=== PATIENT | female | born 1945 | race Caucasian/White ===

== ENCOUNTER → 2020-08-10 09:56 | Outpatient (BNVA) | payer MEDICARE, SELFPAY | PROVIDERS: PCP Internal Medicine; Referring Provider Internal Medicine; Visit Provider Internal Medicine | DX: G47.33 Obstructive sleep apnea (adult) (pediatric) (principal); G25.81 Restless legs syndrome; R91.1 Solitary pulmonary nodule; Z99.89 Dependence on other enabling machines and devices | CPT/HCPCS: 99213 ==

== ENCOUNTER → 2020-08-22 13:24 | Outpatient (BNVA) | payer MEDICARE, SELFPAY | PROVIDERS: PCP Internal Medicine; Referring Provider Internal Medicine; Visit Provider Internal Medicine | DX: I25.10 Atherosclerotic heart disease of native coronary artery without angina pectoris (principal); I48.0 Paroxysmal atrial fibrillation; R55 Syncope and collapse; Z79.01 Long term (current) use of anticoagulants; Z79.899 Other long term (current) drug therapy | CPT/HCPCS: 93005; 99212 ==

== ENCOUNTER 2020-11-18 12:33 | Outpatient (REF) | payer MEDICARE, SELFPAY ==
--- NOTE | 2020-11-18 12:36 | MM_ITS ---
EXAMINATION: MM SCREENING DIGITAL BREAST TOMOSYNTHESIS, BILATERAL CLINICAL INFORMATION: Screening. Asymptomatic. The lifetime risk of breast cancer based on the Tyrer-Cuzick Model is 2.0%. COMPARISON: Mammography: May 05, 2019 and studies dating back to July 30, 2016 TECHNIQUE: Digital breast tomosynthesis is performed in both the craniocaudal and mediolateral oblique views along with computer-aided detection (CAD). Synthesized 2D images are generated from the tomosynthesis. FINDINGS: There are scattered areas of fibroglandular density (ACR BI-RADS breast composition Category b). There are no significant masses, abnormal calcifications, or other abnormalities. MM/MM tomosynthesis screening BI IMPRESSION: There are no significant changes from prior study. ASSESSMENT: BI-RADS 1: Negative RECOMMENDATION: Routine annual mammography screening. This patient's information was entered into a reminder system with a target due date for their next mammogram.
== END 2020-11-18 12:34 | disposition home or self-care (01) ==
LOC: HO.MAMMO 12:33
PROVIDERS: Visit Provider Internal Medicine
DX: Z12.31 Encounter for screening mammogram for malignant neoplasm of breast (principal)
CPT/HCPCS: 77063; 77067

== ENCOUNTER 2020-12-07 10:02 | Emergency (ER) | payer MEDICARE, SELFPAY ==
--- NOTE | ~2020-12-07 | XR_ITS ---
EXAMINATION: XR FOREARM, LEFT and left hand and wrist. CLINICAL INFORMATION: Fall on ice COMPARISON: July 18, 2017 TECHNIQUE: AP and lateral views of the left forearm were obtained. 3 views of the left hand and wrist. FINDINGS: AP and lateral views of the left forearm demonstrate comminuted fracture distal left radius which will be described in examination of the hand and wrist. No ulnar fracture is appreciated. No elbow dislocation is seen. No elbow effusion is noted. There is soft tissue swelling about the proximal and mid dorsal ulnar. Views of the left hand and wrist demonstrate comminuted fracture of the distal left radius without significant displacement of fracture fragments and with dorsal angulation of the radiocarpal joint. Soft tissue swelling is noted. There is significant joint space narrowing with marginal sclerosis and spurring involving the first carpal metacarpal joint as well as the triscaphe joint. There is mild spurring involving the proximal and distal interphalangeal joints. XR/XR forearm LT 2V IMPRESSION: Fracture of the distal left radius with dorsal angulation of the distal fracture fragment. Osteoarthritis of the left hand involving the proximal and distal phalangeal joints. No left elbow effusion.
--- NOTE | ~2020-12-07 | CT_ITS ---
EXAMINATION: CT HEAD WITHOUT CONTRAST CLINICAL INFORMATION: Fall, trauma, on Eliquis. COMPARISON: CT head noncontrast 12/15/2019 TECHNIQUE: Contiguous axial imaging was performed from the skull base to vertex without intravenous administration of contrast. Additional 2-D coronal and sagittal reformatted images are generated on the CT workstation and uploaded to PACS. This CT examination was performed using dose optimization techniques as appropriate, variously including the following: *Automated exposure control *Adjustment of mA and/or kV according to patient size (this includes techniques or standardized protocols for targeted exams where dose is matched to indication/reason for exam; i.e. extremities or head) *Use of iterative reconstruction technique DLP: 660 mGy-cm FINDINGS: There is no intracranial hemorrhage, hematoma, or extra-axial fluid collection. The ventricles are normal in size. There is no hydrocephalus, edema, or mass effect. The conner-white matter differentiation appears symmetric. There is no visible acute territorial infarct or mass lesion. The calvarium appears intact. There is no pneumocephalus or orbital emphysema. The visualized sinuses and middle ears and mastoid air cells show no significant mucosal thickening. There are no air-fluid levels. CT/CT head/brain wo con IMPRESSION: No acute intracranial abnormality.
--- NOTE | ~2020-12-07 | XR_ITS ---
EXAMINATION: XR FOREARM, LEFT and left hand and wrist. CLINICAL INFORMATION: Fall on ice COMPARISON: July 18, 2017 TECHNIQUE: AP and lateral views of the left forearm were obtained. 3 views of the left hand and wrist. FINDINGS: AP and lateral views of the left forearm demonstrate comminuted fracture distal left radius which will be described in examination of the hand and wrist. No ulnar fracture is appreciated. No elbow dislocation is seen. No elbow effusion is noted. There is soft tissue swelling about the proximal and mid dorsal ulnar. Views of the left hand and wrist demonstrate comminuted fracture of the distal left radius without significant displacement of fracture fragments and with dorsal angulation of the radiocarpal joint. Soft tissue swelling is noted. There is significant joint space narrowing with marginal sclerosis and spurring involving the first carpal metacarpal joint as well as the triscaphe joint. There is mild spurring involving the proximal and distal interphalangeal joints. XR/XR hand wrist LT IMPRESSION: Fracture of the distal left radius with dorsal angulation of the distal fracture fragment. Osteoarthritis of the left hand involving the proximal and distal phalangeal joints. No left elbow effusion.
[2020-12-07 10:48] VITALS: BP 174/72; PULSE 70; RESP 16; TEMP 36.5; O2SAT 98; BMI 29.7
--- NOTE | 2020-12-07 11:21 | ED_ITS ---
HPI - Extremity Problem General Chief complaint: Extremity Injury, Upper Stated complaint: fell hurt lt arm Time Seen by Provider: 12/07/20 10:45 Source: patient Mode of arrival: ambulatory History of Present Illness HPI Narrative: 75-year-old female with a past medical history restless leg syndrome, proximal AFib on Eliquis, CHIQUITA on CPAP, CAD s/p cardiac catheterization, hyperlipidemia, presenting to the ED complaining of shoulder/wrist/hand pain s/p mechanical slip and fall on the ice 1 hour [employer]. Reports she believes she hit her head, but denies headache now, or LOC. Denies symptoms prior to fall. Denies numbness, tingling,, nausea/vomiting MD Complaint: extremity pain, extremity swelling and joint paint Related Data Home Medications Medication Instructions Recorded Confirmed apixaban 5 mg tablet 5 mg PO BID 07/20/20 08/22/20 ascorbic acid (vitamin C) 1,000 mg 2 g PO DAILY tab 08/10/20 08/22/20 tablet mecobalamin (vitamin B12) 1,000 1,000 mcg PO DAILY 08/10/20 08/22/20 mcg chewable tablet pantoprazole 20 mg tablet,delayed 20 mg PO DAILY 08/10/20 08/22/20 release rosuvastatin 40 mg tablet See Rx Instructions PO DAILY 08/10/20 08/22/20 metoprolol succinate 25 mg 25 mg PO DAILY tab 08/22/20 08/22/20 tablet,extended release 24 hr ropinirole 5 mg tablet 5 mg PO BEDTIME 09/13/20 Previous Rx's Medication Instructions Recorded ropinirole 5 mg tablet 5 mg PO BEDTIME #90 tab 09/13/20 oxybutynin chloride 10 mg 10 mg PO DAILY #90 tab 09/19/20 tablet,extended release 24 hr diltiazem HCl 120 mg 120 mg PO DAILY #90 cap 09/25/20 capsule,extended release 24 hr oxycodone-acetaminophen [Percocet] 1 tab PO Q8H PRN 3 Days #9 tab 12/07/20 Allergies Allergy/AdvReac Type Severity Reaction Status Date / Time metoclopramide [From REGLAN] Allergy Intermediate SWELLING Verified 09/25/20 08:58 Review of Systems Review of Systems: Constitutional: No Weight loss, No Fever Cardiovascular: No Chest Pain, No SOB Respiratory: No Cough, No Dyspnea Gastrointestinal: No Nausea, No Vomiting Musculoskeletal: + joint pain, No Myalgias, + Joint Swelling Skin: No Skin Lesions, No rash Neuro: No Weakness, No Numbness, No Paresthesias, No Loss of Consciousness, No Dizziness, No Headache Yes all other systems are reviewed and are negative [facility] Past Medical History Attestation statement: The following information was validated with the patient. Medical History (Updated 12/07/20 @ 13:22 by JONNATHAN Bryant) Age related osteoporosis Atherosclerotic cardiovascular disease Atherosclerotic heart disease of [place] coronary artery with unstable angina pectoris Atrial fibrillation Borderline hypercholesterolemia Congenital multiple renal cysts Gastro-esophageal reflux disease without esophagitis Hearing loss Insomnia due to medical condition CHIQUITA on CPAP PAF (paroxysmal atrial fibrillation) Pulmonary nodule less than 6 cm determined by computed tomography of lung Restless legs Slow transit constipation Thrombocytopenia, unspecified Trigeminal neuralgia Unilateral primary osteoarthritis, right hip Surgical History H/O: hysterectomy Hx of cardiac cath Hx of cholecystectomy Hx of varicose vein stripping Family History Family History Father Aneurysm Mother No problems noted. Brother Lung cancer Stroke Sister Heart problem Social History Social History Smoking Status: Never smoker Advance Directives: No Advance Directives Information Provided: Yes Physical Exam Vital Signs: Vital Signs: Last Vital Signs Temp 97.7 F 12/07/20 10:48 Pulse 70 12/07/20 10:48 Resp 16 12/07/20 10:48 BP 174/72 H 12/07/20 10:48 Pulse Ox 98 12/07/20 10:48 Body Mass Index 29.7 Const: General: cooperative and healthy appearing Orientation/consciousness: patient oriented x3 Limitations: no limitations HENMT: Head: Yes normal to inspection, Yes No palpable skull fracture present and Yes atraumatic Ears: hearing grossly normal bilaterally General nose exam: Normal external nose present Face and sinus: Yes normal facial exam Eyes: General: appearance normal, both eyes and all related structures EOM: EOMs intact bilaterally Neck: Other: No midline cervical spinous tenderness or step-offs Neck: Yes normal visual inspection Resp: Effort & Inspection: normal respiratory effort Cardio: Rate: regular rate Peripheral pulses: radial pulses present Skin: Rashes: no rashes Wounds: no wounds Neuro: General: patient oriented x3, tone normal and moves all extremities Extrem: Other: Left shoulder/humerus/elbow without deformity. Nontender. Left forearm with distal swelling and tenderness to palpation Left wrist with notable deformity/swelling and ecchymosis. Tender to palpation. Neurovascularly intact. Hand ROM limited due to pain. Thumb to finger opposition intact General: Yes normal to inspection Course Course Course Narrative: XR hand wrist LT IMPRESSION: Fracture of the distal left radius with dorsal angulation of the distal fracture fragment. Osteoarthritis of the left hand involving the proximal and distal phalangeal joints. No left elbow effusion >partially reduced fracture and placed in sugar-tong splint with sling to follow-up with orthopedics CT head/brain wo con IMPRESSION: No acute intracranial abnormality Discharge Plan Discharge Clinical Impression: Distal radius fracture, left Qualifiers: Encounter type: initial encounter Fracture type: closed Fracture morphology: unspecified fracture morphology Qualified Code(s): S52.502A - Unspecified fracture of the lower end of left radius, initial encounter for closed fracture Patient Disposition: Home, Self-Care Instructions: Wrist Fracture in Adults (ED) Additional Instructions: You have a broken wrist. Keep splint on, dry, and clean Ice and elevate your wrist. Follow-up with accounts receivable specialist in 1 week. Percocet is an opiate pain medication, take only when pain is severe for the next 3 days In addition take Tylenol, however be aware Percocet as Tylenol mixed in, do not exceed 4 g of Tylenol in 1 day If her fingers become swollen, discolored, numb, or pain is unbearable remove Justin wrap and return to the ED immediately Prescriptions: New oxycodone-acetaminophen [Percocet] 5-325 mg tablet 1 tab PO Q8H PRN (Reason: pain) 3 Days Qty: 9 RF: 0 No Action ropinirole 5 mg tablet 5 mg PO BEDTIME RF: 0 ropinirole 5 mg tablet 5 mg PO BEDTIME Qty: 90 RF: 0 oxybutynin chloride 10 mg tablet extended release 24hr 10 mg PO DAILY Qty: 90 RF: 0 diltiazem HCl [Cartia XT] 120 mg capsule,extended release 24hr 120 mg PO DAILY Qty: 90 RF: 1 pantoprazole 20 mg tablet,delayed release (DR/EC) 20 mg PO DAILY RF: 0 mecobalamin (vitamin B12) 1,000 mcg tablet,chewable 1,000 mcg PO DAILY RF: 0 ascorbic acid (vitamin C) 1,000 mg tablet 2 g PO DAILY RF: 0 rosuvastatin [Crestor] 40 mg tablet See Rx Instructions PO DAILY RF: 0 metoprolol succinate 25 mg tablet extended release 24 hr 25 mg PO DAILY RF: 0 Eliquis 5 mg tablet 5 mg PO BID RF: 0 Referrals: InstrMartina lomas MD [Physician] - 1 week
[2020-12-07] MEDS: Acetaminophen 325 MG TABLET 650 MG PO (11:48)
[2020-12-07] MEDS: oxyCODONE HCl Immed Release 5 MG TABLET PO (11:49)
[2020-12-07] MEDS: Lidocaine HCl 1 % MPF 5 ML VIAL SUBCUT ×2 (13:22)
== END 2020-12-07 13:45 | disposition home or self-care (01) ==
PROVIDERS: Emergency Provider Emergency Medicine
DX: S52.502A Unspecified fracture of the lower end of left radius, initial encounter for closed fracture (principal); W00.0XXA Fall on same level due to ice and snow, initial encounter; M19.042 Primary osteoarthritis, left hand; I48.91 Unspecified atrial fibrillation; G89.11 Acute pain due to trauma; M25.512 Pain in left shoulder; Y93.89 Activity, other specified; Y92.014 Private driveway to single-family (private) house as the place of occurrence of the external cause; Y99.9 Unspecified external cause status; Z79.01 Long term (current) use of anticoagulants
CPT/HCPCS: 29125; 70450; 73090; 73110; 73130; 99283; 99284

== ENCOUNTER → 2021-01-16 09:27 | Outpatient (BNVA) | payer MEDICARE, SELFPAY | PROVIDERS: Visit Provider Internal Medicine | DX: G47.33 Obstructive sleep apnea (adult) (pediatric) (principal); G25.81 Restless legs syndrome; Z99.89 Dependence on other enabling machines and devices | CPT/HCPCS: 99212 ==

== ENCOUNTER → 2021-02-26 09:46 | Outpatient (BNVA) | payer MEDICARE, SELFPAY | PROVIDERS: Visit Provider Internal Medicine | DX: I48.0 Paroxysmal atrial fibrillation (principal); I25.10 Atherosclerotic heart disease of native coronary artery without angina pectoris; R55 Syncope and collapse; G47.33 Obstructive sleep apnea (adult) (pediatric); I10 Essential (primary) hypertension; Z99.89 Dependence on other enabling machines and devices | CPT/HCPCS: 99212 ==

== ENCOUNTER → 2021-05-02 08:55 | Outpatient (BNVA) | payer MEDICARE, SELFPAY | PROVIDERS: Visit Provider Internal Medicine | DX: Z01.810 Encounter for preprocedural cardiovascular examination (principal); I48.0 Paroxysmal atrial fibrillation; I25.10 Atherosclerotic heart disease of native coronary artery without angina pectoris; R55 Syncope and collapse; I10 Essential (primary) hypertension; G47.33 Obstructive sleep apnea (adult) (pediatric); Z99.89 Dependence on other enabling machines and devices; Z79.899 Other long term (current) drug therapy | CPT/HCPCS: 93005; 99212 ==

== ENCOUNTER → 2021-05-10 15:18 | Outpatient (BNVA) | payer MEDICARE, SELFPAY | PROVIDERS: PCP Internal Medicine; Visit Provider Internal Medicine | DX: G47.33 Obstructive sleep apnea (adult) (pediatric) (principal); G25.81 Restless legs syndrome; R91.1 Solitary pulmonary nodule; Z99.89 Dependence on other enabling machines and devices | CPT/HCPCS: 99212 ==

== ENCOUNTER 2021-06-20 07:45 | Emergency (ER) | payer MEDICARE, SELFPAY ==
--- NOTE | 2021-06-20 07:53 | ED_ITS ---
HPI - Animal Bite General Chief Complaint: General Medical Stated Complaint: bee sting Time Seen by Provider: 06/20/21 07:53 Source: patient Mode of arrival: ambulatory Limitations: no limitations History of Present Illness MD complaint: other (bee sting) Onset (ago): day(s) (yesterday) Animal: other (bee) Description of animal: unknown animal Mechanism: other (sting) Location: other (buttocks, left leg) Pain description: burning Context: unprovoked Associated symptoms: none Treatments prior to arrival: other (tried cortisone and hydrogen peroxide) Related Data Home Medications Medication Instructions Recorded Confirmed ascorbic acid (vitamin C) 1,000 mg 2 g PO DAILY tab 08/10/20 05/02/21 tablet mecobalamin (vitamin B12) 1,000 1,000 mcg PO DAILY 08/10/20 05/02/21 mcg chewable tablet ropinirole 5 mg tablet 5 mg PO BEDTIME 09/13/20 05/02/21 Previous Rx's Medication Instructions Recorded oxybutynin chloride 10 mg 10 mg PO DAILY #90 tab 12/27/20 tablet,extended release 24 hr apixaban 5 mg tablet (Eliquis) 5 mg PO BID 90 Days #180 tab 03/12/21 diltiazem HCl 120 mg 120 mg PO DAILY #90 cap 04/11/21 capsule,extended release 24 hr (Cartia XT) prednisone 20 mg tablet 40 mg PO DAILY 4 Days #8 tab 06/20/21 Allergies Allergy/AdvReac Type Severity Reaction Status Date / Time metoclopramide [From REGLAN] AdvReac Intermediate SWELLING Verified 05/10/21 16:01 Review of Systems Review of Systems: Constitutional : No Fever, No Chills ENT/Mouth : No sore throat, No Rhinorrhea Eyes: No Eye Pain, No Swelling, No Redness Cardiovascular : No Chest Pain, No SOB Respiratory : No Cough, No Sputum Gastrointestinal : No Nausea, No Vomiting, No Diarrhea, No abdominal Pain Genitourinary : No Dysuria, No Hematuria Musculoskeletal : No joint pain, No Myalgias, No Joint Swelling Skin : pos Skin Lesions, positive skin rash Neuro : No Weakness, No Numbness, No Headache All other systems reviewed and are negative PMFSH Past Medical History Attestation statement: The following information was validated with the patient. Medical History Age related osteoporosis Atherosclerotic cardiovascular disease Atherosclerotic heart disease of [place] coronary artery with unstable angina pectoris Atrial fibrillation Borderline hypercholesterolemia Congenital multiple renal cysts Essential hypertension Gastro-esophageal reflux disease without esophagitis Hearing loss Insomnia due to medical condition CHIQUITA on CPAP PAF (paroxysmal atrial fibrillation) Pulmonary nodule less than 6 cm determined by computed tomography of lung Restless legs Slow transit constipation Thrombocytopenia, unspecified Trigeminal neuralgia Unilateral primary osteoarthritis, right hip Surgical History H/O: hysterectomy Hx of cardiac cath Hx of cholecystectomy Hx of varicose vein stripping Family History Family History Father Aneurysm Mother No problems noted. Brother Lung cancer Stroke Sister Heart problem Social History Social History Patient Tobacco Use Status: Never used Tobacco Use of substances other than those prescribed or required for medical reasons: No Advance Directives: Yes Advance Directives Information Provided: Yes Advance Directives on File: No Physical Exam Vital Signs: Appearance: Alert. Oriented X3. No acute distress. Eyes: Pupils equal, round and reactive to light. ENT: Pharynx normal. Neck: Normal inspection. Neck supple. CVS: Normal heart rate and rhythm. Pulses normal. Respiratory: No respiratory distress. Breath sounds normal. Abdomen: Soft and non-tender. Skin: Skin warm and dry. Normal skin color. Bites to left buttock and left leg localized swelling and redness no fluctuance, no signs of extending erythema Extremities: No lower extremity edema. No calf ttp Neuro: Oriented X 3. No motor deficit. No sensory deficit. MDM - Animal Bite MDM Narrative Medical decision making narrative: 76 yo female with afib, here with bee stings with localized allergic reaction on legs and buttocks - no respiratory issues, will start on low dose steroids and topical benadryl, no signs of cellulitis Discharge Plan Discharge Clinical Impression: Accidental bee sting Patient Disposition: Home, Self-Care Instructions: Insect Bite or Sting (ED) Additional Instructions: return to ED for any worsening symptoms or concerns obtain topical benadryl and apply three times a day Prescriptions: New prednisone 20 mg tablet 40 mg PO DAILY 4 Days Qty: 8 RF: 0 No Action ropinirole 5 mg tablet 5 mg PO BEDTIME RF: 0 oxybutynin chloride 10 mg tablet extended release 24hr 10 mg PO DAILY Qty: 90 RF: 1 apixaban [Eliquis] 5 mg tablet 5 mg PO BID 90 Days Qty: 180 RF: 1 diltiazem HCl [Cartia XT] 120 mg capsule,extended release 24hr 120 mg PO DAILY Qty: 90 RF: 0 mecobalamin (vitamin B12) 1,000 mcg tablet,chewable 1,000 mcg PO DAILY RF: 0 ascorbic acid (vitamin C) 1,000 mg tablet 2 g PO DAILY RF: 0
[2021-06-20 07:59] VITALS: BP 163/73; PULSE 74; RESP 18; TEMP 36.7; O2SAT 100; BMI 29.2
[2021-06-20] MEDS: predniSONE 20 MG TABLET 40 MG PO (08:08)
== END 2021-06-20 08:18 | disposition home or self-care (01) ==
PROVIDERS: Emergency Provider Emergency Medicine
DX: T63.441A Toxic effect of venom of bees, accidental (unintentional), initial encounter (principal); R21 Rash and other nonspecific skin eruption; R22.32 Localized swelling, mass and lump, left upper limb; Y92.017 Garden or yard in single-family (private) house as the place of occurrence of the external cause; I10 Essential (primary) hypertension; I48.91 Unspecified atrial fibrillation; Z79.899 Other long term (current) drug therapy
CPT/HCPCS: 99283

== ENCOUNTER → 2021-08-30 14:26 | Outpatient (BNVA) | payer MEDICARE, SELFPAY | PROVIDERS: Visit Provider Internal Medicine | DX: I48.0 Paroxysmal atrial fibrillation (principal); I25.10 Atherosclerotic heart disease of native coronary artery without angina pectoris; I10 Essential (primary) hypertension; R55 Syncope and collapse; G47.33 Obstructive sleep apnea (adult) (pediatric); Z99.89 Dependence on other enabling machines and devices | CPT/HCPCS: 93005; 99212 ==

== ENCOUNTER → 2021-09-03 14:47 | Outpatient (REF) | payer MEDICARE, SELFPAY ==
--- NOTE | 2021-09-03 14:56 | HM_ITS ---
Conclusion: 1. Patient was monitored for total period of 2 days and 23 hours 2. Baseline rhythm is normal sinus rhythm with average heart of 64 beats per minute 3. No significant pauses or bradycardia noted 4. One 4 beat run of nonsustained VT at 186 beats per minute noted 5. Twelve short runs of cerebral episode with longest lasting 10 beats 6. Total of 721 PACs accounting for 0.26% a cardiac for occasional PACs 7. Patient reported to events correlated with sinus rhythm MTDD
== END ==
LOC: HO.CARD 14:47
PROVIDERS: Visit Provider Internal Medicine
DX: I48.0 Paroxysmal atrial fibrillation (principal); R00.2 Palpitations
CPT/HCPCS: 93242

== ENCOUNTER → 2021-11-06 13:17 | Outpatient (BNVA) | payer MEDICARE, SELFPAY | PROVIDERS: Visit Provider Internal Medicine | DX: I48.0 Paroxysmal atrial fibrillation (principal); I25.10 Atherosclerotic heart disease of native coronary artery without angina pectoris; I10 Essential (primary) hypertension; G47.33 Obstructive sleep apnea (adult) (pediatric); R55 Syncope and collapse; Z99.89 Dependence on other enabling machines and devices | CPT/HCPCS: 99212 ==

== ENCOUNTER → 2021-11-12 09:58 | Outpatient (BNVA) | payer MEDICARE, SELFPAY | PROVIDERS: Visit Provider Internal Medicine | DX: G47.33 Obstructive sleep apnea (adult) (pediatric) (principal); R91.1 Solitary pulmonary nodule; G25.81 Restless legs syndrome; Z99.89 Dependence on other enabling machines and devices | CPT/HCPCS: 99212 ==

== ENCOUNTER 2022-02-01 08:04 | Emergency (ER) | payer MEDICARE, SELFPAY ==
--- NOTE | ~2022-02-01 | US_ITS ---
EXAMINATION: US VENOUS ULTRASOUND WITH DOPPLER LOWER EXTREMITY, LEFT CLINICAL INFORMATION: Left leg pain COMPARISON: None TECHNIQUE: Ultrasound of the deep veins is performed from the hip to the calf with compression sonography and color and pulse Doppler assessment. Spectral analysis with color-flow imaging is performed. FINDINGS: There is normal venous compression and respiratory variation and augmented flow. The visualized common femoral vein, superficial femoral vein, profunda femoral vein, popliteal vein, and the trifurcation region shows no evidence of deep venous thrombosis. There is no significant popliteal fossa cyst. If the patient's symptoms persist, followup ultrasound in 5 days 7 days might be of value to exclude proximal propagation from a non-visualized calf vein. US/US venous duplex LE LT IMPRESSION: No DVT demonstrated in the left lower extremity.
--- NOTE | ~2022-02-01 | XR_ITS ---
EXAMINATION: XR KNEE, LEFT CLINICAL INFORMATION: Pain COMPARISON: None TECHNIQUE: Four views of the left knee. FINDINGS: There is mild loss of medial and patellofemoral compartment joint space without any visible acute fracture, dislocation, loose bodies or bony erosive changes. There is mild anterior superior patellar enthesophyte. No suprapatellar joint effusion seen. XR/XR knee LT 4V IMPRESSION: Mild degenerative changes medial and patellofemoral compartment with anterior superior patellar enthesophyte.
[2022-02-01 08:10] VITALS: BP 168/66; PULSE 71; RESP 16; TEMP 36.6; O2SAT 98; BMI 30.9
--- NOTE | 2022-02-01 08:42 | ED.EXTPRO ---
HPI - Extremity Problem General Chief complaint: Extremity Problem Stated complaint: L leg pain Time Seen by Provider: 02/01/22 08:22 Source: patient Mode of arrival: ambulatory Limitations: no limitations History of Present Illness HPI Narrative: 76-year-old female with a history of hypertension, AFib on Eliquis, obstructive sleep apnea here with 1 week of left leg pain and swelling. Patient tells me that prior to her pain she had spent a day going up and down a ladder doing some spring cleaning. Patient tells me the next day she woke up with pain in her knee which radiates down into her calf and she feels like there is swelling associated with this. No redness, warmth, fevers, chills, shortness of breath or chest pain. She has been compliant with her Eliquis this not missed any days. Patient denies any recent antibiotic use. Related Data Home Medications Medication Instructions Recorded Confirmed ascorbic acid (vitamin C) 1,000 mg 2 g PO DAILY tab 08/10/20 11/06/21 tablet ropinirole 5 mg tablet 5 mg PO BEDTIME 09/13/20 11/06/21 Previous Rx's Medication Instructions Recorded oxybutynin chloride 10 mg 10 mg PO DAILY #90 tab 12/27/20 tablet,extended release 24 hr diltiazem HCl 240 mg 240 mg PO QAM #90 cap 08/30/21 capsule,extended release 24 hr (Cartia XT) apixaban 5 mg tablet (Eliquis) 5 mg PO BID 90 Days #180 tab 12/12/21 Allergies Allergy/AdvReac Type Severity Reaction Status Date / Time metoclopramide [From REGLAN] AdvReac Intermediate SWELLING Verified 11/12/21 10:07 Review of Systems Review of Systems: Yes all other systems are reviewed and are negative Constitutional: Constitutional: Reports no additional constitutional complaints, Denies body ache(s), Denies chills, Denies fever(s), Denies headache(s) and Denies weakness Eyes: Eyes: Reports no additional eye complaints and Denies change in vision ENT: Reports system reviewed and no additional complaints, except as documented, Denies dizziness, Denies headache(s), Denies nasal congestion, Denies nasal discharge and Denies neck pain Cardiovascular: Cardiovascular: Reports no additional cardiovascular complaints, Denies chest pain, Reports leg edema and Denies dyspnea Respiratory: Respiratory: Reports no additional respiratory complaints, Denies cough and Denies dyspnea Gastrointestinal: Gastrointestinal: Reports no additional gastrointestinal complaints, Denies abdominal pain, Denies diarrhea, Denies nausea and Denies vomiting Genitourinary: Genitourinary: Reports no additional female genitourinary complaints and Denies urinary incontinence Musculoskeletal: Musculoskeletal: Reports no additional musculoskeletal complaints, Denies back pain, Reports arthralgias, Denies joint swelling, Denies limited range of motion, Denies neck pain, Denies numbness and Denies tingling Integumentary/Breasts: Skin/Breast: Reports system reviewed and no additional complaints, except as docu and Denies rash Neurologic: Reports system reviewed and no additional complaints, except as documented, Denies Abnormal speech present, Denies dizziness, Denies headache(s), Denies numbness, Denies tingling and Denies weakness PMFSH Past Medical History Attestation statement: The following information was validated with the patient. Source: old records reviewed and nursing notes reviewed Medical History Age related osteoporosis Atherosclerotic cardiovascular disease Atherosclerotic heart disease of [place] coronary artery with unstable angina pectoris Atrial fibrillation Borderline hypercholesterolemia Congenital multiple renal cysts Essential hypertension Gastro-esophageal reflux disease without esophagitis Hearing loss Insomnia due to medical condition CHIQUITA on CPAP PAF (paroxysmal atrial fibrillation) Pulmonary nodule less than 6 cm determined by computed tomography of lung Restless legs Slow transit constipation Thrombocytopenia, unspecified Trigeminal neuralgia Unilateral primary osteoarthritis, right hip Surgical History H/O: hysterectomy Hx of cardiac cath Hx of cholecystectomy Hx of varicose vein stripping Family History Family History Father Aneurysm Mother No problems noted. Brother Lung cancer Stroke Sister Heart problem Social History Social History Patient Tobacco Use Status: Never used Tobacco Advance Directives: No Advance Directives Information Provided: No Physical Exam Vital Signs: Vital Signs: Last Vital Signs Temp 97.8 F 02/01/22 08:10 Pulse 71 02/01/22 08:10 Resp 16 02/01/22 08:10 BP 168/66 H 02/01/22 08:10 Pulse Ox 98 02/01/22 08:10 BMI result Body Mass Index 30.9 Const: General: cooperative, healthy appearing, comfortable and no acute distress Orientation/consciousness: patient oriented x3 Limitations: no limitations HEENT: Head: Yes normal to inspection Ears: hearing grossly normal bilaterally General nose exam: Normal external nose present Face and sinus: Yes normal facial exam Mouth: Normal oral and palatal mucosa present Throat: Yes posterior oropharynx normal Eyes: General: appearance normal, both eyes and all related structures Pupils: Equal, round and reactive pupils present Neck: Neck: Yes normal visual inspection Chest: Chest palpation & inspection: normal inspection of the chest Resp: Effort & Inspection: normal respiratory effort Auscultation: clear to auscultation bilaterally Cardio: Rate: regular rate Rhythm: regular rhythm Peripheral pulses: Peripheral pulses 2+ throughout GI: Inspection: Yes normal to inspection Palpation (GI): Soft to palpation and nontender Auscultation: normal bowel sounds Back/Spine/Pelvis: Thoracic/Lumbar Spine: thoracic and lumbar spine normal to inspection Skin: General skin exam: no rashes or lesions noted Neuro: General: patient oriented x3, no focal motor deficits and normal sensation to monofilament Cranial nerves: Yes Equal, round and reactive pupils present Cognition (Neuro): normal cognition Speech: No Abnormal speech present Gait exam (Neuro): Normal gait present Motor exam (neuro): 5/5 motor strength present throughout Extrem: Other: There is tenderness the left knee diffusely with full range of motion. There is tenderness the left calf with no appreciable swelling, warmth or redness. There is tenderness with flexion and extension of the foot. Negative Liao sign. General: Yes normal to inspection Course Course Course Narrative: 76-year-old female here with 1 week of left knee pain which radiates to the calf with reported swelling. Patient tells me this occurred after going up and down a ladder. Will check x-rays, venous ultrasound, provide pain control Reevaluation(s) Reevaluation #1: 1140- ultrasound shows no acute DVT. X-ray of left knee shows arthritic changes. Labs unremarkable. ?gastro Strain. low concern for Achilles tendon injury with negative Liao test, no risk factors such as recent antibiotics. recommend supportive care at home, Tylenol as needed for pain, follow-up with primary care for persistent pain MDM - Extremity (Nontraumatic) Medical Records Attestation: I reviewed the patient's medical records. Lab Data Attestation: I reviewed the patient's lab results. Result diagrams: 02/01/22 08:43 02/01/22 08:43 Labs: Lab Results 02/01/22 02/01/22 Range/Units 08:43 08:43 WBC 4.2 L (4.8-10.8) X10*3/uL RBC 4.67 (4.20-5.50) X10*6/uL Hgb 14.3 (12.0-16.0) g/dl Hct 43.4 (37.0-47.0) % MCV 92.9 (80.0-98.0) fL MCH 30.6 (27.0-33.0) pg MCHC 32.9 (31.0-35.0) g/dl RDW 13.9 (11.0-16.0) % Plt Count 157 L (160-400) X10*3/uL MPV 11.8 (9.4-12.3) fL Immature Gran % (Auto) 0.0 (0.0-0.4) % Neut % (Auto) 53.2 (45-73) % Lymph % (Auto) 32.3 (20-40) % [place] % (Auto) 9.6 (2-11) % Eos % (Auto) 3.9 (0-4) % Baso % (Auto) 1.0 (0-2) % Lymph # (Auto) 1.3 (1.2-4.9) X10*3/uL [place] # (Auto) 0.4 (0.1-1.2) X10*3/uL Eos # (Auto) 0.2 (0.0-0.4) X10*3/uL Baso # (Auto) 0.0 (0.0-0.2) X10*3/uL Abs Immat Gran (auto) 0.00 (0.00-0.03) X10*3/uL Absolute Neuts (auto) 2.2 (2.0-8.3) x10*3/uL Absolute Nucleated RBC 0.000 (0.0-0.012) X10*3/uL Nucleated RBC % (auto) 0.0 (0.0-0.2) /100WBC Sodium 139 (135-145) mmol/L Potassium 3.8 (3.3-5.1) mmol/L Chloride 106 (96-108) mmol/L Carbon Dioxide 24 (22-29) mmol/L Anion Gap 13 (12-20) BUN 18 H (9-16) mg/dL Creatinine 0.80 (0.5-1.4) mg/dL Estim Creat Clear Calc 59.8 Estimated GFR > 60 Random Glucose 123 H (60-115) mg/dL Calcium 9.2 (8.4-10.2) mg/dL Total Bilirubin 0.9 (0.0-1.0) mg/dL Direct Bilirubin 0.3 (0.0-0.5) mg/dL AST 20 (5-31) U/L ALT 17 (0-31) U/L Alkaline Phosphatase 105 (39-117) U/L Total Protein 7.3 (6.5-8.0) g/dL Albumin 4.1 (3.5-5.0) g/dL Imaging Data Venous US: Attestation: I personally reviewed and interpreted this imaging study as follows: Radiologist's impression: [place] [id number] Ultrasound Report Signed Patient: Juan Heard MR#: [id number] : 1945 Acct:[id number] Age/Sex: 76 / F ADM Date: 02/01/22 Loc: .ED Attending Dr: Ordering Physician: Priscila Joshi NP Date of Service: 02/01/22 Procedure(s): US venous duplex LE Accession Number(s): [id number] cc: Priscila Joshi NP~ EXAMINATION:? US VENOUS ULTRASOUND WITH DOPPLER LOWER EXTREMITY, LEFT CLINICAL INFORMATION:? Left leg pain COMPARISON:? None TECHNIQUE: Ultrasound of the deep veins is performed from the hip to the calf with compression sonography and color and pulse Doppler assessment. Spectral analysis with color-flow imaging is performed. FINDINGS: There is normal venous compression and respiratory variation and augmented flow. The visualized common femoral vein, superficial femoral vein, profunda femoral vein, popliteal vein, and the trifurcation region shows no evidence of deep venous thrombosis. ? There is no significant popliteal fossa cyst. If the patient's symptoms persist, followup ultrasound in 5 days 7 days might be of value to exclude proximal propagation from a non-visualized calf vein. US/US venous duplex LE LT IMPRESSION: No DVT demonstrated in the left lower extremity. knee x-ray: Attestation: I personally reviewed and interpreted this imaging study as follows: Radiologist's impression: FINDINGS: There is mild loss of medial and patellofemoral compartment joint space without any visible acute fracture, dislocation, loose bodies or bony erosive changes. There is mild anterior superior patellar enthesophyte. No suprapatellar joint effusion seen.? XR/XR knee LT 4V IMPRESSION: Mild degenerative changes medial and patellofemoral compartment with anterior superior patellar enthesophyte. ? Discharge Plan Discharge Clinical Impression: Gastrocnemius strain, left, Osteoarthritis of left knee Patient Disposition: Home, Self-Care Instructions: Muscle Strain (DC), Osteoarthritis (DC) Additional Instructions: Your ultrasound showed no signs of a blood clot. your x-ray shows arthritis in your knee. your lab work is normal. you likely have a strain of your calf muscle. apply ice. rest the leg. take Tylenol for pain. see your primary care doctor in 5 days for persistent pain Prescriptions: No Action ropinirole 5 mg tablet 5 mg PO BEDTIME 0RF Rx Instructions: administer 1-3 hours before bedtime oxybutynin chloride 10 mg tablet extended release 24hr 10 mg PO DAILY Qty: 90 1RF Eliquis 5 mg tablet 5 mg PO BID 90 Days Qty: 180 1RF ascorbic acid (vitamin C) 1,000 mg tablet 2 g PO DAILY 0RF diltiazem HCl [Cartia XT] 240 mg capsule,extended release 24hr 240 mg PO QAM Qty: 90 4RF Referrals: Physician,Unknown J [Primary Care Provider] - 5 days Interventions: ED Discharge Assessment Last Done: 02/01/22 11:26 Discharge Date/Time: 02/01/22 11:27
[2022-02-01] MEDS: Acetaminophen 325 MG TABLET 975 MG PO (08:47)
[2022-02-01 08:48] LABS: MANUAL DIFF FLAG NO
[2022-02-01 09:03] LABS: Eosinophils Absolute Auto 0.2 X10*3/uL (0.0-0.4); Eosinophils Percent Auto 3.9 % (0-4); Hematocrit 43.4 % (37.0-47.0); Hemoglobin 14.3 g/dl (12.0-16.0); Lymphocytes Absolute Auto 1.3 X10*3/uL (1.2-4.9); Lymphocytes Percent Auto 32.3 % (20-40); Mean Corpuscular HGB Conc 32.9 g/dl (31.0-35.0); Mean Corpuscular Hemoglobin 30.6 pg (27.0-33.0); Mean Corpuscular Volume 92.9 fL (80.0-98.0); Mean Platelet Volume 11.8 fL (9.4-12.3); Monocytes Absolute Auto 0.4 X10*3/uL (0.1-1.2); Monocytes Percent Auto 9.6 % (2-11); Neutrophils Absolute Auto 2.2 x10*3/uL (2.0-8.3); Neutrophils Percent Auto 53.2 % (45-73); Platelet Count 157 X10*3/uL (160-400); Red Blood Count 4.67 X10*6/uL (4.20-5.50); Red Cell Distribution Width 13.9 % (11.0-16.0); White Blood Count 4.2 X10*3/uL (4.8-10.8)
[2022-02-01 09:10] LABS: Alanine Aminotransferase 17 U/L (0-31); Albumin Level 4.1 g/dL (3.5-5.0); Alkaline Phosphatase 105 U/L (39-117); Anion Gap 13 (12-20); Aspartate Amino Transferase 20 U/L (5-31); Bilirubin Direct 0.3 mg/dL (0.0-0.5); Bilirubin Total 0.9 mg/dL (0.0-1.0); Blood Urea Nitrogen 18 mg/dL (9-16); Calcium 9.2 mg/dL (8.4-10.2); Carbon Dioxide 24 mmol/L (22-29); Chloride 106 mmol/L (96-108); Creatinine Clr Calc Pharmacy 59.8; Estimated Glomerular Filt Rate > 60; Glucose Random 123 mg/dL (60-115); Potassium 3.8 mmol/L (3.3-5.1); Sodium 139 mmol/L (135-145); Total Protein 7.3 g/dL (6.5-8.0)
== END 2022-02-01 11:27 | disposition home or self-care (01) ==
PROVIDERS: Nurse Practitioner Family; Emergency Provider Emergency Medicine
DX: M79.605 Pain in left leg (principal); I48.91 Unspecified atrial fibrillation; R60.0 Localized edema; Z79.01 Long term (current) use of anticoagulants; Z79.899 Other long term (current) drug therapy
CPT/HCPCS: 36415; 73564; 80048; 80076; 85025; 93971; 99284

== ENCOUNTER → 2022-05-13 09:50 | Outpatient (BNVA) | payer MEDICARE, SELFPAY | PROVIDERS: Visit Provider Internal Medicine | DX: G47.33 Obstructive sleep apnea (adult) (pediatric) (principal); G25.81 Restless legs syndrome; R91.1 Solitary pulmonary nodule; Z99.89 Dependence on other enabling machines and devices; Z79.899 Other long term (current) drug therapy | CPT/HCPCS: 99212 ==

== ENCOUNTER → 2022-06-26 12:54 | Outpatient (BNVA) | payer MEDICARE, SELFPAY | PROVIDERS: Visit Provider Internal Medicine | DX: I48.0 Paroxysmal atrial fibrillation (principal); I25.10 Atherosclerotic heart disease of native coronary artery without angina pectoris; I10 Essential (primary) hypertension; G47.33 Obstructive sleep apnea (adult) (pediatric); Z79.01 Long term (current) use of anticoagulants; Z79.899 Other long term (current) drug therapy; Z99.89 Dependence on other enabling machines and devices | CPT/HCPCS: 99212 ==

== ENCOUNTER → 2022-11-11 10:19 | Outpatient (BNVA) | payer MEDICARE, SELFPAY | PROVIDERS: Visit Provider Internal Medicine | DX: G47.33 Obstructive sleep apnea (adult) (pediatric) (principal); G25.81 Restless legs syndrome; Z99.89 Dependence on other enabling machines and devices; R91.1 Solitary pulmonary nodule | CPT/HCPCS: 99212 ==

== ENCOUNTER → 2023-03-13 07:53 | Outpatient (REF) | payer MEDICARE, SELFPAY ==
--- NOTE | 2023-03-13 07:58 | HM_ITS ---
* Total monitoring time 3 days. * Underlying rhythm is sinus. Average ventricular rate 67/Min. Range 50 to 96/Min. * Rare PACs with low burden. * No significant pauses or AV blocks. * Patient markers used in association in sinus rhythm. Symptoms of rapid/fast heartbeat and dry mouth; exhausted/dry mouth correlate with sinus rhythm. MTDD
--- NOTE | 2023-03-13 07:58 | CA_ITS ---
Transthoracic Echocardiogram Patient (Last, First, Middle): Juan Heard C Gender: Female Date of : 1945 Age: 77 Procedure Date: 03/13/2023 Procedure Type: Transthoracic Echocardiogram Location: OP Height: 165.1 cm Weight: 81.65 kg BSA: 1.89 m2 Heart Rate: bpm BP: 137 / 73 mmHg [employer] Maker: ROBBY Referring MD: Josh Krishnan MD Symptoms: I48.0 - Paroxysmal atrial fibrillation Study Quality: Adequate Conclusions: - The left ventricular systolic function is normal. The calculated ejection fraction is 62% by biplane method. - There is mild calcification of the aortic valve. - There is mild mitral valve regurgitation. - There is mild tricuspid valve regurgitation. Findings Left Ventricle Normal left ventricular cavity size. There is mildly increased left ventricular wall thickness. The left ventricular systolic function is normal. The calculated ejection fraction is 62% by biplane method. There is no evidence of regional wall motion abnormalities. E/E prime ratio is between 8 and 15 consistent with indeterminate filling pressures. Evidence suggests grade I (mild) diastolic dysfunction. LV peak GLS -17.5%. Right Ventricle Normal right ventricular cavity size and systolic function. Atria The left atrium is mildly dilated. The right atrium is normal in size. Aortic Valve There is a normal trileaflet aortic valve. There is mild calcification of the aortic valve. There is no aortic valve stenosis. There is no aortic valve regurgitation. Mitral Valve There is mild mitral annular calcification. There is mild mitral valve regurgitation. There is no mitral valve stenosis. Pulmonic Valve The pulmonic valve is likely normal. Tricuspid Valve Normal tricuspid valve structure. There is mild tricuspid valve regurgitation. There is no evidence of pulmonary hypertension. Great Vessels The asc aorta is normal in size. Venous The inferior vena cava is normal in size and collapses greater than 50% with inspiration. Pericardium/Pleural There is no evidence of pericardial effusion. Prior Study Comparison No significant change compared to prior study dated: 12/31/2019. Measurements 2D Linear Measurements IVSd: 1.22 0.6-0.9/0.6-1.0 cm LVIDd: 4.02 3.9-5.3/4.2-5.9 cm LVIDd Index: 2.13 2.4-3.2/2.2-3.1 cm/m2 LVIDs: 2.84 2.0-3.6 cm LVPWd: 1.05 0.7-1.1 cm LA Diam: 3.60 2.7-3.8/3.0-4.0 cm LAIDs Index: 1.90 1.5-2.3 cm/m2 LV Mass: 191.25 67-162/88-224 g LV Mass Index: 101.19 43-95/49-115 g/m2 LVOT Diam: 2.00 3.0+(-)1.3 cm 2D Systolic Function EF 4C: 61.90 >55% EF 2C: 64.40 >55% EF BiP: 61.90 >55% Mitral Valve MV Pk E: 0.94 MV PK A: 0.96 MV Decel Time: 182.00 E/A: 1.00 E'Lateral: 7.29 E'Medial: 6.42 E/E' Med: 14.70 E/E' Lat: 12.90 PHT: 53.00 MVA PHT: 4.15 Decel [place]: 5.17 Aortic Valve AoV Pk Mois[place]: 1.58 AoV Mn Mois[place]: 1.16 AoV VTI: 0.41 AoV Pk Grad: 10.00 Aov Mn Grad: 6.00 LUZ MARINA Cont.VTI: 2.14 LVOT LVOT Pk [place]: 1.14 LVOT Mn [place]: 0.73 LVOT VTI: 0.28 LVOT Pk Grad: 5.00 LVOT Mn Grad: 2.00 LVOT Diam: 2.00 LVOT Area: 3.14 Diastolic Function MV Pk E: 0.94 MV Pk A: 0.96 E/A: 1.00 E'Medial: 6.42 E/E' Med: 14.70 E' Laterial: 7.29 E/E' Lat: 12.90 Right Ventricle TAPSE (mm): 26.90 TVS' Mois[place]: 11.40 Tricuspid Valve TR Pk Moisés: 2.47 TR Pk Grad: 24.00 Great Vessels Aorta Sinus of Valsalva: 3.01 2.0-3.[address] [place]: 2.24 1.7-3.4 cm Ao Asc: 3.30 2.1-3.4 cm Updated in Other Vendor System with Status of Final Josh Krishnan MD electronically signed on 03/14/2023 1:41:30 PM with status of Final
== END ==
LOC: HO.CARD 07:53
PROVIDERS: Visit Provider Internal Medicine
DX: I10 Essential (primary) hypertension (principal); I25.10 Atherosclerotic heart disease of native coronary artery without angina pectoris; I48.0 Paroxysmal atrial fibrillation
CPT/HCPCS: 93242; 93306; 93356

== ENCOUNTER 2023-05-12 13:26 | Outpatient (AMB) | payer MEDICARE, SELFPAY ==
--- NOTE | 2023-05-12 13:29 | A.OFFVIS_ITS ---
Intake Vital Signs 05/12/23 13:30 Height 5 ft 3 in Weight 169 lb 12.095 oz BMI 30.1 BP 122/66 Blood Pressure Location Lt brachial Position Sitting Pulse 63 Pulse Source Pulse Oximeter Pulse Oximetry (%) 97 Oxygen Delivery Method Room Air Intake Visit Reasons: connie Intake Note: Pt presents today for a f/u and reports she had to go some nights without her CPAP. Allergies metoclopramide [From REGLAN] Adverse Reaction (Intermediate, Verified 05/12/23 13:44) SWELLING Medication List - Last Reconciled 05/12/23 by Thaddeus Lester MD apixaban (Eliquis) 5 mg PO BID ascorbic acid (vitamin C) 2 grams PO DAILY diltiazem HCl 240 mg PO QAM escitalopram oxalate 5 mg PO DAILY gabapentin mg PO oxybutynin chloride ER 10 mg PO DAILY ropinirole ER 6 mg PO DAILY tramadol 50 mg PO Q6H PRN Do you need a note to return to daycare/school/sports/work: No HPI connie HPI Details This 77 years old very pleasant female is here for follow-up after 6 months. She is a case of obstructive sleep apnea which is being treated very well with the use of CPAP. She uses CPAP very regularly but some nights because she cannot sleep on her back, she turns on to the side and the mask comes off. According to the compliance report it was only for 2 nights that she had to remove the mask after using for 2-3 hours. Overall her usage remains above 6 hours per night. She sleeps very well and wakes up refreshed. She has had some stress full days due to her family issues, continues to use escitalopram 5 mg daily, and for restless legs she uses ropinirole 6 mg at bedtime. She has no history of cough wheezing, but gets short of breath if she walks fast or climbs stairs. FOR[facility], [facility] Medical History Age related osteoporosis Atherosclerotic cardiovascular disease Atherosclerotic heart disease of [place] coronary artery with unstable angina pectoris Atrial fibrillation Borderline hypercholesterolemia Congenital multiple renal cysts Essential hypertension Gastro-esophageal reflux disease without esophagitis Hearing loss Insomnia due to medical condition CONNIE on CPAP PAF (paroxysmal atrial fibrillation) Pulmonary nodule less than 6 cm determined by computed tomography of lung Restless legs Slow transit constipation Thrombocytopenia, unspecified Trigeminal neuralgia Unilateral primary osteoarthritis, right hip Surgical History H/O: hysterectomy Hx of cardiac cath Hx of cholecystectomy Hx of varicose vein stripping Family History Father Aneurysm Mother No problems noted. Brother Lung cancer Stroke Sister Heart problem Social History Patient Tobacco Use Status: Never used Tobacco Review of Systems Const All systems reviewed & are unremarkable except as noted in HPI and below Eyes Reports no additional complaints ENT Reports no additional complaints Card Denies chest pain, Reports irregular heart rhythm and Denies leg edema Resp Reports no additional complaints GI Reports no additional complaints Reports urinary incontinence (Controlled with minimal med) Musc Reports no additional complaints Skin/Breast Reports system reviewed and no additional complaints, except as documented Neuro Reports restless legs (Controlled with med) Psych Reports no additional complaints Endo Reports no additional complaints Karthik/Lymph Reports no additional complaints Physical Exam Vital Signs: Last Vital Signs Pulse 63 05/12/23 13:30 BP 122/66 05/12/23 13:30 Pulse Ox 97 05/12/23 13:30 Oxygen Delivery Method Room Air 05/12/23 13:30 BMI result Body Mass Index 30.1 Const General: comfortable, no acute distress, alert and awake Orientation/consciousness: patient oriented x3 HEENT Head: Yes normal to inspection General nose exam: No nasal polyps present and No nasal discharge present Face and sinus: Yes sinuses nontender Mouth: oropharynx normal Throat: Yes posterior oropharynx normal Eyes General: appearance normal, both eyes and all related structures Neck Neck: Yes normal visual inspection, Yes no lymphadenopathy, Yes trachea midline and Yes no JVD Thyroid: Thyroid normal Chest Chest palpation & inspection: normal inspection of the chest, normal palpation of entire chest wall and no tenderness Resp Effort & Inspection: normal respiratory effort Auscultation: clear to auscultation bilaterally, no crackles and no wheezes Percussion: percussion normal Cardio Palpation: normal PMI Rate: regular rate Rhythm: abnormal rhythm (Atrial fib) Heart sounds: no gallops and no murmurs Peripheral pulses: Peripheral pulses 2+ throughout GI Palpation (GI): Soft to palpation, nontender, No hepatosplenomegaly present and no masses Auscultation: normal bowel sounds Back/Spine/Pelvis Thoracic/Lumbar Spine: thoracic and lumbar spine normal to inspection Skin General skin exam: no rashes or lesions noted Neuro General: patient oriented x3 and no focal motor deficits Cranial nerves: Yes CN's II-XII intact bilaterally Extrem General: Yes normal to inspection, Yes no clubbing, cyanosis or edema and Yes no calf tenderness Psych Appearance: grossly normal and well kempt Speech and movement: Normal speech and movement present Results Reviewed Results Reviewed: Compliance report for the last 30 nights is reviewed used 30/30 nights,. 100% Average use per night 6 hours 53 minutes, only on 2 nights she used less than 4 hours. She is on CPAP of 13 cm. Residual AHI is 4.4 Assessment & Plan Assessment & Plan (1) CONNIE on CPAP: Comment: OBSTRUCTIVE SLEEP APNEA IS WELL TREATED AND CONTROLLED WITH CPAP. COMPLIANCE IS EXCELLENT. DENIES ANY ISSUES WITH THE MASK OR CPAP MACHINE. COMMENDED FOR HER GOOD COMPLIANCE AND ALSO ADVISED TO CONTINUE USING CPAP EVERY NIGHT. Code(s): G47.33 - Obstructive sleep apnea (adult) (pediatric); Z99.89 - Dependence on other enabling machines and devices (2) Restless legs: Comment: CONTROLLED WITH THE MEDICATION, PATIENT DENIES ANY SIGNIFICANT SYMPTOMS OF RLS. AT THIS TIME. ADVISED TO CONTINUE TAKING ROPINEROL 6 MG AT NIGHT . Code(s): G25.81 - Restless legs syndrome (3) Pulmonary nodule less than 6 cm determined by computed tomography of lung: Comment: LAST CTA, ON 12/30/19 SHOWED MULTIPLE, SMALL NODULES SIZE LESS THAN 5 MM . SHE IS LOW RISK . SO NO NEED OF FURTHER FOLLOW UPS. Code(s): R91.1 - Solitary pulmonary nodule Coding Level of Care Code Est Pt Level 3 (75465) Diagnoses CONNIE on CPAP G47.33; Z99.89 Restless legs G25.81 Pulmonary nodule less than 6 cm determined by computed tomography of lung R91.1
[2023-05-12 13:30] VITALS: BP 122/66; PULSE 63; O2SAT 97; BMI 30.1
== END 2023-05-12 13:45 | disposition home or self-care (01) ==
PROVIDERS: Visit Provider Internal Medicine
DX: G47.33 Obstructive sleep apnea (adult) (pediatric) (principal); Z99.89 Dependence on other enabling machines and devices; G25.81 Restless legs syndrome; R91.1 Solitary pulmonary nodule
CPT/HCPCS: 99213

== ENCOUNTER → 2023-05-12 13:26 | Outpatient (BNVA) | payer MEDICARE, SELFPAY | PROVIDERS: Visit Provider Internal Medicine | DX: G47.33 Obstructive sleep apnea (adult) (pediatric) (principal); G25.81 Restless legs syndrome; R91.1 Solitary pulmonary nodule; Z99.89 Dependence on other enabling machines and devices | CPT/HCPCS: 99212 ==

== ENCOUNTER 2023-11-12 12:59 | Outpatient (AMB) | payer MEDICARE, SELFPAY ==
[2023-11-12 13:20] VITALS: BP 140/68; PULSE 75; O2SAT 98; BMI 31.2
--- NOTE | 2023-11-12 13:20 | MHC.OFFVIS ---
Intake Vital Signs 11/12/23 13:20 Height 5 ft 3 in Weight 176 lb BMI 31.2 BP 140/68 H Blood Pressure Location Lt brachial Position Sitting Pulse 75 Pulse Source Pulse Oximeter Pulse Oximetry (%) 98 Oxygen Delivery Method Room Air Intake Visit Reasons: chiquita Intake Note: pt is here for follow up and states she is using her cpap but she did have a stroke prior to holidays and is still trying to get back to her baseline. some coughing and shortness of breath occurring. 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 SHE IS RECOVERING FROM THAT OKAY. WALKS WITH A WALKER, AND CAN SPEAK SLOWLY BUT CLEARLY. SHE HAS BEEN USING HER CPAP EVERY NIGHT REGULARLY AND SLEEPS WELL. THERE IS NO ISSUE WITH THE CPAP DEVICE ARE THE MASK. SHE GETS GOOD SLEEP FOR AT LEAST 6-7 HOURS EVERY NIGHT. [facility] Medical History Essential hypertension Atrial fibrillation Unilateral primary osteoarthritis, right hip Congenital multiple renal cysts Gastro-esophageal reflux disease without esophagitis Slow transit constipation Borderline hypercholesterolemia Atherosclerotic heart disease of [place] coronary artery with unstable angina pectoris Thrombocytopenia, unspecified Trigeminal neuralgia Hearing loss Insomnia due to medical condition Age related osteoporosis Atherosclerotic cardiovascular disease PAF (paroxysmal atrial fibrillation) Pulmonary nodule less than 6 cm determined by computed tomography of lung Restless legs CHIQUITA on CPAP Surgical History Hx of cholecystectomy Hx of varicose vein stripping H/O: hysterectomy Hx of cardiac cath Family History Father Aneurysm Mother No problems noted. Brother Lung cancer Stroke Sister Heart problem Social History Patient Tobacco Use Status: Never used Tobacco Review of Systems Const All systems reviewed & are unremarkable except as noted in HPI and below Eyes Reports no additional complaints ENT Reports no additional complaints Card Denies chest pain, Reports irregular heart rhythm and Denies leg edema Resp Reports no additional complaints GI Reports no additional complaints Reports urinary incontinence (Controlled with minimal med) Musc Reports no additional complaints Skin/Breast Reports system reviewed and no additional complaints, except as documented Neuro Reports restless legs (Controlled with med) Psych Reports no additional complaints Endo Reports no additional complaints Karthik/Lymph Reports no additional complaints Physical Exam Vital Signs: Last Vital Signs Pulse 75 11/12/23 13:20 BP 140/68 H 11/12/23 13:20 Pulse Ox 98 11/12/23 13:20 Oxygen Delivery Method Room Air 11/12/23 13:20 BMI result Body Mass Index 31.2 Const General: comfortable, no acute distress, alert and awake Orientation/consciousness: patient oriented x3 HEENT Head: Yes normal to inspection General nose exam: No nasal polyps present and No nasal discharge present Face and sinus: Yes sinuses nontender Mouth: oropharynx normal Throat: Yes posterior oropharynx normal Eyes General: appearance normal, both eyes and all related structures Neck Neck: Yes normal visual inspection, Yes no lymphadenopathy, Yes trachea midline and Yes no JVD Thyroid: Thyroid normal Chest Chest palpation & inspection: normal inspection of the chest, normal palpation of entire chest wall and no tenderness Resp Effort & Inspection: normal respiratory effort Auscultation: clear to auscultation bilaterally, no crackles and no wheezes Percussion: percussion normal Cardio Palpation: normal PMI Rate: regular rate Rhythm: abnormal rhythm (Atrial fib) Heart sounds: no gallops and no murmurs Peripheral pulses: Peripheral pulses 2+ throughout GI Palpation (GI): Soft to palpation, nontender, No hepatosplenomegaly present and no masses Auscultation: normal bowel sounds Back/Spine/Pelvis Thoracic/Lumbar Spine: thoracic and lumbar spine normal to inspection Skin General skin exam: no rashes or lesions noted Neuro General: patient oriented x3 and no focal motor deficits Cranial nerves: Yes CN's II-XII intact bilaterally Extrem General: Yes normal to inspection, Yes no clubbing, cyanosis or edema and Yes no calf tenderness Psych Appearance: grossly normal and well kempt Speech and movement: Normal speech and movement present Results Reviewed Results Reviewed: COMPLIANCE REPORT FOR THE LAST 30 NIGHTS SHOWS THAT SHE HAS USED 30/30 NIGHTS, 100%. AVERAGE USE IT PER NIGHT. 8 HOURS 17 MINUTES WHICH IS EXCELLENT THERE IS NO AIR LEAK, PRESSURE IS 13 CM . RESIDUAL AHI 4.8 Assessment & Plan Assessment & Plan (1) CHIQUITA on CPAP: Comment: OBSTRUCTIVE SLEEP APNEA IS WELL TREATED AND CONTROLLED WITH CPAP. COMPLIANCE IS EXCELLENT. DENIES ANY ISSUES WITH THE MASK OR CPAP MACHINE. Code(s): G47.33 - Obstructive sleep apnea (adult) (pediatric); Z99.89 - Dependence on other enabling machines and devices Plan: COMMENDED FOR HER GOOD COMPLIANCE AND ALSO ADVISED TO CONTINUE USING CPAP EVERY NIGHT. (2) Restless legs: Comment: CONTROLLED WITH THE MEDICATION, PATIENT DENIES ANY SIGNIFICANT SYMPTOMS OF RLS. AT THIS TIME. ADVISED TO CONTINUE TAKING ROPINEROL 6 MG AT NIGHT . Code(s): G25.81 - Restless legs syndrome Plan: WILL CONT. THE SAME (3) Pulmonary nodule less than 6 cm determined by computed tomography of lung: Comment: LAST CTA, ON 12/30/19 SHOWED MULTIPLE, SMALL NODULES SIZE LESS THAN 5 MM . SHE IS LOW RISK . SO NO NEED OF FURTHER FOLLOW UPS. Code(s): R91.1 - Solitary pulmonary nodule Plan: ABOVE Coding Level of Care Code Est Pt Level 3 (29279) Diagnoses CHIQUITA on CPAP G47.33; Z99.89 Restless legs G25.81 Pulmonary nodule less than 6 cm determined by computed tomography of lung R91.1
== END 2023-11-12 13:38 | disposition home or self-care (01) ==
PROVIDERS: PCP Physician Assistant; Visit Provider Internal Medicine
DX: G47.33 Obstructive sleep apnea (adult) (pediatric) (principal); Z99.89 Dependence on other enabling machines and devices; G25.81 Restless legs syndrome; R91.1 Solitary pulmonary nodule
CPT/HCPCS: 99213

== ENCOUNTER → 2023-11-12 12:59 | Outpatient (BNVA) | payer MEDICARE, SELFPAY | PROVIDERS: PCP Physician Assistant; Visit Provider Internal Medicine | DX: G47.33 Obstructive sleep apnea (adult) (pediatric) (principal); G25.81 Restless legs syndrome; R91.1 Solitary pulmonary nodule; Z99.89 Dependence on other enabling machines and devices | CPT/HCPCS: 99212 ==